=== PATIENT | male | born 1980 | race Caucasian/White ===

== ENCOUNTER 2023-11-08 20:30 | Emergency (ER) | payer OTHER ==
[~2023-11-08] VITALS: Ht 170.2 cm; Wt 158.7 kg
[2023-11-08] MEDS ORDERED: FUROSEMIDE 100 MG/10 ML VIAL IV ONE (21:00)
[2023-11-08 21:16] LABS: BASOPHILS 0.8 % (0-2); EOSINOPHILS 1.7 % (0-6); HEMATOCRIT 42.3 % (35.0-50.0); LYMPHOCYTES 22.5 % (24-44); MCH 34.3 (27-36); MCHC 33.1 g/dl (30-36); MCV 103.6 fl (81-99); MONOCYTES 10.3 % (0-12); NEUTROPHILS 64.7 % (39-80); PLATELET COUNT 140 K/uL (140-440); RBC 4.08 M/ul (4.3-5.7); RDW 16.1 (10.5-15.0)
[2023-11-08 21:20] LABS: INR 1.2 (0.80-1.30); PROTIME 14.5 Sec (11.2-14.2)
[2023-11-08 21:32] LABS: ALBUMIN 2.8 g/dL (3.4-5.0); ALBUMIN/GLOBULIN RATIO 0.64 (1.1-2.4); ANION GAP 9.8 (7-21); BILIRUBIN, TOTAL 1.3 ng/dL (0.2-1.0); BUN/CREATININE RATIO 7.69 (6.0-28.6); CALCIUM 8.4 mg/dL (8.5-10.1); CREATININE, SERUM 0.65 mg/dL (0.70-1.30); POTASSIUM 3.8 mmol/L (3.5-5.1); PROTEIN, TOTAL 7.2 g/dL (6.4-8.2)
[2023-11-08] MEDS ORDERED: LASIX40 MG PO (23:10)
[2023-11-08 23:30] VITALS: BP 136/88
== END 2023-11-08 23:30 | disposition home or self-care (01) ==
LOC: ED 20:30
PROVIDERS: Family Medicine
DX: I50.9 Heart failure, unspecified (principal); R74.01 Elevation of levels of liver transaminase levels
CPT/HCPCS: 36415; 71045; 80053; 83690; 83880; 85025; 85610; 96374; 99284-25; J1940